=== PATIENT | female | born 1935 | race African-American/Black ===

== ENCOUNTER 2018-11-16 15:55 | Emergency (ER) | payer MEDICARE ==
[~2018-11-16] VITALS: Ht 165.1 cm; Wt 77.3 kg
[2018-11-16] MEDS ORDERED: ALBU8.5H8 IH (16:06)
[2018-11-16] MEDS ORDERED: ADV100 IH (16:06)
[2018-11-16] MEDS ORDERED: LEVALBUTEROL HCL 0.63 MG/3 ML NEB SOLUTION NEB ONE (17:15)
[2018-11-16 18:03] LABS: HEMATOCRIT 37.4 % (36-46); HEMOGLOBIN 12.4 g/dL (12.0-16.0); MEAN CORPUSCULAR HEMOGLOBIN 30.5 pg (26.0-34.0); MEAN CORPUSCULAR HGB CONC 33.2 G/dL (31.0-37.0); MEAN CORPUSCULAR VOLUME 92 fL (80-100); PLATELET COUNT (AUTO) 335 K/uL (150-450); RED BLOOD CELL COUNT(AUTO) 4.07 MIL/uL (4.00-5.20)
[2018-11-16 18:11] LABS: CALCIUM, TOTAL 9.5 mg/dL (8.8-10.5); CREATININE 1.55 mg/dL (0.60-1.30); POTASSIUM 3.9 mmol/L (3.5-5.1)
[2018-11-16] MEDS ORDERED: 0.9% SODIUM CHLORIDE 5 ML NEB SOLUTION NEB ONE (18:19)
[2018-11-16 18:32] LABS: ALBUMIN 4.2 g/dL (3.4-5.0); BILIRUBIN,TOTAL 0.4 mg/dL (0.1-1.0); TOTAL PROTEIN, SERUM 7.6 g/dL (6.4-8.2)
[2018-11-16 18:57] VITALS: BP 157/91
[2018-11-16] MEDS ORDERED: LORazepam 1 MG TABLET PO ONE (19:00)
[2018-11-16] MEDS ORDERED: ALBUTEROL SULFATE HFA 90 MCG/PUFF 8 GM INHALER IH ONE (19:00)
[2018-11-16 19:50] LABS: BAND NEUTROPHILS % (MANUAL) 3 % (0-5); LYMPHOCYTES % (MANUAL) 10 % (22-44); MONOCYTES % (MANUAL) 5 % (2-9); SEGMENTED NEUTROPHILS % 79 % (40-70)
[2018-11-17 12:46] LABS: METAMYELOCYTES % 3 % (0-0); MYELOCYTES % 0 % (0-0); PROMYELOCYTES % 0 (0-0)
== END 2018-11-16 19:36 | disposition home or self-care (01) ==
LOC: EMS 15:57
DX: F41.9 Anxiety disorder, unspecified (principal); I10 Essential (primary) hypertension; E78.00 Pure hypercholesterolemia, unspecified; J45.909 Unspecified asthma, uncomplicated
CPT/HCPCS: 93005; 94640; J3535